=== PATIENT | female | born 2000 | race Hispanic/Latino ===

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

== ENCOUNTER 2020-04-07 20:02 | Inpatient (IN) | payer MEDICAID ==
[~2020-04-07] VITALS: Ht 165.1 cm; Wt 79.8 kg
[2020-04-07] MEDS ORDERED: LACTATED RINGERS 1000ML 1,000 ML IV PRN (20:03)
[2020-04-07] MEDS ORDERED: LACTATED RINGERS 500 ML 500 ML IV PRN (20:15)
[2020-04-07] MEDS ORDERED: PROMETHAZINE HCL 25 MG/ML 1ML AMPULE IM PRN (20:15)
[2020-04-07] MEDS ORDERED: ROPIVACAINE 0.2% 100ML VIAL 100 ML EP PRN (20:15)
[2020-04-07] MEDS ORDERED: EPHEDRINE SULFATE 50 MG/ML AMPULE IVP PRN (20:15)
[2020-04-07] MEDS ORDERED: NALOXONE HCL 0.4 MG/1 ML ML IV PRN (20:15)
[2020-04-07] MEDS ORDERED: MEPERIDINE-PF 50 MG/ML SYG IVP PRN (20:15)
[2020-04-07 21:53] LABS: HEMATOCRIT 29.1 % (36-48); MEAN CORPUSCULAR HEMOGLOBIN 25.5 pg (27.0-33.0); MEAN CORPUSCULAR HGB CONC 30.2 g/dL (32.0-36.0); MEAN CORPUSCULAR VOLUME 84.3 fL (80-100); NUCLEATED RED BLOOD CELLS 0.3 % (0.0-0.19); PLATELET COUNT (AUTO) 289 K/uL (130-400); RED BLOOD CELL COUNT(AUTO) 3.45 MIL/uL (4.00-5.50); RED CELL DISTRIBUTION WIDTH 17.6 % (11.0-15.5); WHITE BLOOD COUNT (AUTO) 17.5 K/uL (4.8-10.8)
[2020-04-07 22:03] LABS: APPEARANCE,URINE Cloudy (CLEAR); BILIRUBIN,URINE Negative (NEGATIVE); COLOR,URINE Yellow (YELLOW); GLUCOSE, URINE (UA) Negative (NEGATIVE); KETONES,URINE Negative (NEGATIVE); LEUKOCYTE ESTERASE ,URINE Large (NEGATIVE); NITRATE,URINE Negative (NEGATIVE); OCCULT BLOOD,URINE Large (NEGATIVE); PROTEIN,URINE Negative (NEGATIVE)
[2020-04-07 22:11] LABS: AMPHET/METH SCREEN,URINE NEGATIVE (NEGATIVE); BARBITURATE SCREEN, URINE NEGATIVE (NEGATIVE); BENZODIAZEPINES SCREEN,URINE NEGATIVE (NEGATIVE); CANNABINOID SCREEN,URINE POSITIVE (NEGATIVE); COCAINE SCREEN,URINE NEGATIVE (NEGATIVE); OPIATE SCREEN,URINE NEGATIVE (NEGATIVE); PHENCYCLIDINE SCREEN,URINE NEGATIVE (NEGATIVE)
[2020-04-07 22:17] LABS: BACTERIA,URINE Moderate /HPF (None Seen); MUCUS,URINE Few LPF (None Seen); SQUAMOUS EPITHELIAL CELL,UR 0-2 /HPF (0-2); WBC,URINE 26-50 /HPF (0-1)
[2020-04-07] MEDS ORDERED: CEFTRIAXONE SODIUM 1 GM ONE (23:59)
[2020-04-07] MEDS ORDERED: WATER FOR INJECTION,STERILE 5 ML VIAL ONE (23:59)
[2020-04-08] MEDS ORDERED: CEFTRIAXONE SODIUM 1 GM IVP SCH
[2020-04-08 02:47] VITALS: BP 105/55
[2020-04-08] MEDS ORDERED: OXYTOCIN 10 USP UNITS/ML 20 UNIT in LACTATED RINGERS 1000ML 1,000 ML IV SCH (05:00)
[2020-04-08] MEDS ORDERED: OXYTOCIN-LR 20 UNITS/1000 ML 1,000 ML IV ONE ×2 (05:02→12:16)
--- NOTE | 2020-04-08 09:22 | NUR ---
NO CPS open case Sw called local CPS office and pt has no open CPS case. New report to be made once baby is born
[2020-04-08] MEDS ORDERED: LIDOCAINE HCL 1% 20 ML VIAL ONE (11:13)
--- NOTE | 2020-04-08 11:53 | NUR ---
CPS REPORT # [id number] Sw notified that pt had delivered baby boy. Pt is positive for THC on delivery and baby will have UDS and Meconium testing done. Mariella made CPS report to Tamica kate [phone]. Waiting on CPS contact
[2020-04-08] MEDS ORDERED: ACETAMINOPHEN 325 MG TAB PO PRN (12:00)
[2020-04-08] MEDS ORDERED: BENZOCAINE/LANOLIN/ALOE VERA 60 ML AEROSOL TP PRN (12:00)
[2020-04-08] MEDS ORDERED: WITCH HAZEL 1 PAD TP PRN (12:00)
[2020-04-08] MEDS ORDERED: MEASLES/MUMPS/RUBELLA VACCINE, LIVE 0.5 ML/VIAL SQ PRN (12:00)
[2020-04-08] MEDS ORDERED: LANOLIN 30GM OINTMENT TP PRN (12:00)
[2020-04-08] MEDS ORDERED: DIPH,PERTUSS(ACELL),TET VAC/PF 0.5 ML VIAL IM PRN (12:00)
[2020-04-08] MEDS ORDERED: ACETAMINOPHEN-CODEINE 300/30MG TAB PO PRN (12:00)
[2020-04-08] MEDS: IBUPROFEN 600 MG TABLET PO PRN ×2 (12:23→19:03)
--- NOTE | 2020-04-08 13:40 | NUR ---
PATIENT ORIENTED TO ROOM. FUNDUS FIRM, BLEEDING SCANT. NO PAIN REPORTED AT THIS TIME. EDUCATED PATIENT ON SITZ BATH, TUCKS PADS, DERMAPLAST SPRAY. PT STATES SHE WISHES TO FORMULA FEED. ADVISED PATIENT TO CALL WHEN NEEDING TO AMBULATE FOR THE FIRST TIME.
[2020-04-08 13:41] VITALS: BP 109/49
--- NOTE | 2020-04-08 14:08 | NUR ---
CPS CPS amywtiffany Dias Jeffery,, Jr [phone] arrived to meet with pt and BF. CPS provided with pt information requested. CPS to notified when meeting done and dcp.
[2020-04-08 16:16] VITALS: BP 94/51
[2020-04-08 19:48] VITALS: BP 97/55
[2020-04-08] MEDS: DOCUSATE SODIUM 100 MG CAP PO SCH (21:00)
[2020-04-09 00:17] VITALS: BP 91/50
[2020-04-09 04:00] VITALS: BP 98/59
[2020-04-09] MEDS: IBUPROFEN 600 MG TABLET PO PRN (04:23)
[2020-04-09 06:52] LABS: HEMATOCRIT 28.3 % (36-48); MEAN CORPUSCULAR HEMOGLOBIN 25.1 pg (27.0-33.0); MEAN CORPUSCULAR HGB CONC 29.7 g/dL (32.0-36.0); MEAN CORPUSCULAR VOLUME 84.5 fL (80-100); NUCLEATED RED BLOOD CELLS 0.1 % (0.0-0.19); RED BLOOD CELL COUNT(AUTO) 3.35 MIL/uL (4.00-5.50); RED CELL DISTRIBUTION WIDTH 17.9 % (11.0-15.5); WHITE BLOOD COUNT (AUTO) 16.3 K/uL (4.8-10.8)
[2020-04-09 07:29] VITALS: BP 112/72
[2020-04-09 08:12] LABS: HEPATITIS Bs ANTIGEN SCREEN P Negative (Negative)
[2020-04-09] MEDS: DOCUSATE SODIUM 100 MG CAP PO SCH (09:00)
[2020-04-09 11:27] VITALS: BP 94/62
--- NOTE | 2020-04-09 11:50 | NUR ---
SPOKE WITH DR. COLLIER VIA TELEPHONE. UPDATE WAS GIVEN ON PATIENT'S STATUS. NEW ORDERS RECEIVED. PATIENT OKAY FOR DISCHARGE.
--- NOTE | 2020-04-09 13:25 | NUR ---
PATIENT LEFT UNIT VIA WHEELCHAIR WITH BELONGINGS IN HAND. PATIENT IS ACCOMPANIED BY GRANDMOTHER. PERSONAL VEHICLE USED FOR TRANSPORTATION. BABY SECURE IN [place].
== END 2020-04-09 13:25 | disposition home or self-care (01) | DRG 560 ==
LOC: LDH 20:02 → WSH 04-08 13:35
PROVIDERS: ADMIT Obstetrics & Gynecology; ATTEND Obstetrics & Gynecology
PROC: 3E033VJ Introduction of Other Hormone into Peripheral Vein, Percutaneous Approach (ICD-10-PCS; principal; 2020-04-08)
PROC: 10E0XZZ Delivery of Products of Conception, External Approach (ICD-10-PCS; 2020-04-08)
PROC: 0UQMXZZ Repair Vulva, External Approach (ICD-10-PCS; 2020-04-08)
PROC: 0KQM0ZZ Repair Perineum Muscle, Open Approach (ICD-10-PCS; 2020-04-08)
PROC: 3E0234Z Introduction of Serum, Toxoid and Vaccine into Muscle, Percutaneous Approach (ICD-10-PCS; 2020-04-08)
PROC: 3E0134Z Introduction of Serum, Toxoid and Vaccine into Subcutaneous Tissue, Percutaneous Approach (ICD-10-PCS; 2020-04-08)
PROC: 3E0R3BZ Introduction of Anesthetic Agent into Spinal Canal, Percutaneous Approach (ICD-10-PCS; 2020-04-08)
PROC: 00HU33Z Insertion of Infusion Device into Spinal Canal, Percutaneous Approach (ICD-10-PCS; 2020-04-08)
DX: O69.81X0 Labor and delivery complicated by cord around neck, without compression, not applicable or unspecified (principal); Z37.0 Single live birth; J45.909 Unspecified asthma, uncomplicated; O70.1 Second degree perineal laceration during delivery; O71.82 Other specified trauma to perineum and vulva; Z3A.39 39 weeks gestation of pregnancy; Z23 Encounter for immunization; O99.52 Diseases of the respiratory system complicating childbirth
CPT/HCPCS: 36415; 80305; 81001; 85027; 86592; 86850; 86900; 86901; 87088; 87340; A4314; G0378; J0696; J2590; J2795; J7120

== ENCOUNTER 2020-08-22 03:33 | Emergency (ER) | payer MEDICAID ==
[2020-08-22 05:01] LABS: APPEARANCE,URINE Turbid (CLEAR); BILIRUBIN,URINE Small (NEGATIVE); COLOR,URINE Dark Yellow (YELLOW); GLUCOSE, URINE (UA) Negative (NEGATIVE); KETONES,URINE Trace mg/dL (NEGATIVE); LEUKOCYTE ESTERASE ,URINE Trace (NEGATIVE); NITRATE,URINE Negative (NEGATIVE); OCCULT BLOOD,URINE Negative (NEGATIVE); PROTEIN,URINE Trace mg/dL (NEGATIVE)
[2020-08-22 05:04] LABS: HCG,QUAL RESULT NEGATIVE (NEGATIVE)
[2020-08-22 05:09] LABS: AMPHET/METH SCREEN,URINE NEGATIVE (NEGATIVE); BARBITURATE SCREEN, URINE NEGATIVE (NEGATIVE); BENZODIAZEPINES SCREEN,URINE POSITIVE (NEGATIVE); CANNABINOID SCREEN,URINE POSITIVE (NEGATIVE); COCAINE SCREEN,URINE POSITIVE (NEGATIVE); OPIATE SCREEN,URINE NEGATIVE (NEGATIVE); PHENCYCLIDINE SCREEN,URINE NEGATIVE (NEGATIVE)
[2020-08-22 06:02] LABS: AMORPHOUS SEDIMENT,UR Many /LPF (None Seen); BACTERIA,URINE Few /HPF (None Seen); RBC,URINE 0-1 /HPF (0-1); WBC,URINE 0-1 /HPF (0-1)
== END 2020-08-22 06:11 ==
LOC: EDH 03:33
DX: F19.10 Other psychoactive substance abuse, uncomplicated (principal); J45.909 Unspecified asthma, uncomplicated; F32.9 Major depressive disorder, single episode, unspecified
CPT/HCPCS: 80305; 81001; 81025

== ENCOUNTER 2025-03-20 10:04 | Emergency (ER) | payer BC, MEDICAID ==
[~2025-03-20] VITALS: Ht 165.1 cm; Wt 52.2 kg
--- NOTE | 2025-03-20 10:17 | ERN ---
ED Note History of Present Illness Stated Complaint: APPENDIX PAIN Chief Complaint: Abdominal Pain Time Seen by MD: 10:06 Dictation: PATIENT IS A 24-YEAR-OLD FEMALE COMING IN TODAY WITH COMPLAINTS OF HAVING APPENDICITIS FOR THE LAST 3-4 MONTHS. SHE STATES SHE HAS ALREADY BEEN TO [facility] ONCE AND HAD A CAT SCAN DONE LAST MONTH AND WAS TOLD HER APPENDIX WAS INFLAMED BUT THEY WOULD GIVE HER SOME ANTIBIOTICS RIGHT NOW AND THEN SHE COULD COME BACK LATER IF SHE WANTED SURGERY. SHE STATES SHE HAS HAD NO FEVER NO CHILLS NO NAUSEA VOMITING. SHE STATES SHE DID NOT GO TO HER PRIMARY CARE DOCTOR FOR REFERRAL BECAUSE WHY DID NOT [facility] REMOVE HER APPENDIX WHEN SHE WAS THERE. Allergies: Coded Allergies: No Known Drug Allergies (Unverified Allergy, Unknown, 04/07/20) Home Meds Active Scripts Ibuprofen (Ibuprofen) 600 Mg Tablet, 600 MG PO Q6H PRN for PAIN, #30 TAB Prov:BRIONNA DEVINE FURNITURE SANDER 03/20/25 Amoxicillin/Potassium Clav (Amox Tr-K Clv 875-125 mg Tab) 875 Mg-125 Mg Tablet, 1 EACH PO BID for 7 Days, #14 TAB 0 Refills Prov:BRIONNA DEVINE FURNITURE SANDER 03/20/25 Past Medical History Past Medical History: Anxiety, Asthma Surgical History: Other Surgical History Other: ECTOPIC LMP: Mar 15, 2025 : 4 Para: 1 Aborts: 3 RN Note Reviewed/Agreed w/PFSH: Yes Review of System Dictation CONSTITUTIONAL: NEGATIVE EXCEPT FOR HPI HEAD/FACE: NEGATIVE EXCEPT FOR HPI EENT: NEGATIVE EXCEPT FOR HPI RESPIRATORY: NEGATIVE EXCEPT FOR HPI GASTROINTESTINAL/ABDOMINAL: NEGATIVE EXCEPT FOR HPI CHRONIC RIGHT LOWER QUADRANT PAIN GENITOURINARY: NEGATIVE EXCEPT FOR HPI MUSCULOSKELETAL: NEGATIVE EXCEPT FOR HPI INTEGUMENTARY: NEGATIVE EXCEPT FOR HPI NEUROLOGICAL/PSYCH: NEGATIVE EXCEPT FOR HPI HEMATOLOGIC/LYMPHATIC: NEGATIVE EXCEPT FOR HPI ALL SYSTEMS NEGATIVE, EXCEPT NOTED ABOVE. 13 POINT REVIEW OF SYSTEMS ASSESSED AND ALL NEGATIVE EXCEPT FOR ABOVE. Initial Vital Sign VS Vital Signs Date Time Temp Pulse Resp B/P (MAP) Pulse Ox O2 Delivery O2 Flow Rate FiO2 03/20/25 10:08 97.0 94 20 126/77 99 Room Air 0 03/20/25 10:30 21 Physical Exam Dictation SHE THOMAS VITAL SIGNS REVIEWED GENERAL APPEARANCE: ALERT, ORIENTED X 3, NO ACUTE DISTRESS, WELL DEVELOPED, NOURISHED. HEAD AND FACE: NON-TRAUMATIC. EYES: PERRL, PINK CONJUNCTIVAS, EYELID NO TRAUMA, ANTERIOR CHAMBER WITH ARCUS SENILIS. EARS: PINNAS INTACT AND NO SIGNS OF TRAUMA OR ERYTHEMA EAR CANALS CLEAR AND NO DISCHARGE TM NO ERYTHEMA NOSE: NO DISCHARGE, NO BLEEDING. OROPHARYNX: MOUTH NORMAL, TONGUE PINK, PHARYNX CLEAR,NO ERYTHEMA, TONSILS NO EXUDATES, NO ABSCESSES NOTED, MUCOUS MEMBRANE MOIST NECK: SUPPLE, NON-TENDER, NO THYROMEGALY, NO MASSES, NO JVD, NO BRUITS BREAST:DEFERRED CHEST:NO TENDERNESS, NO CREPITUS, NO PARADOXICAL MOVEMENT, NO RETRACTIONS LUNGS:CLEAR, WELL-VENTILATED, SYMMETRIC, NO RALES, NO WHEEZING, NO RHONCHI, NO STRIDOR, GOOD BREATH SOUNDS BILATERALLY HEART: REGULAR RATE, REGULAR RHYTHM, NO MURMUR, NO GALLOPS VASCULAR: NO PERIPHERAL EDEMA, ABDOMEN: SOFT, POSITIVE BOWEL SOUNDS, NONDISTENDED, NO GUARDING, RIGHT LOWER QUADRANT PAIN TENDERNESS NO MASSES NO HEPATOMEGALY, NO SPLENOMEGALY, NO COLE'S SIGN, NO HERNIAS. RECTAL: DEFERRED GENITAL: DEFERRED NEUROLOGICAL: NORMAL SPEECH, MOTOR FUNCTION INTACT, SENSORY FUNCTION INTACT MUSCULOSKELETAL: NECK NONTENDER, FULL RANGE OF MOTION, BACK NONTENDER, FULL RANGE OF MOTION, EXTREMITIES: NONTENDER, FULL RANGE OF MOTION SKIN: COLOR PINK, DRY, NO TURGOR, NO RASH, NO LACERATIONS, NO ABRASIONS, NO CONTUSIONS. LYMPHATIC Results (Laboratory/Radiology) Laboratory/Radiology Laboratory Tests Test 03/20/25 10:29 03/20/25 10:35 White Blood Count 8.1 K/uL (4.8-10.8) Red Blood Count 4.11 MIL/uL (4.00-5.50) Hemoglobin 13.4 g/dL (12.0-16.0) Hematocrit 38.6 % (36-48) Mean Corpuscular Volume 93.9 fL (79-99) Mean Corpuscular Hemoglobin 32.6 pg (27.0-33.0) Mean Corpuscular Hemoglobin Concent 34.7 g/dL (32.0-36.0) Red Cell Distribution Width 12.3 % (11.0-15.5) Platelet Count 225 K/uL (130-400) Mean Platelet Volume 9.3 fL (7.5-10.5) Immature Granulocyte % (Auto) 0.2 % (0-1) Neutrophils (%) (Auto) 75.2 % (40.0-77.0) Lymphocytes (%) (Auto) 18.1 % (21.0-51.0) L Monocytes (%) (Auto) 5.7 % (3.0-13.0) Eosinophils (%) (Auto) 0.6 % (0.0-8.0) Basophils (%) (Auto) 0.2 % (0.0-5.0) Neutrophils # (Auto) 6.1 K/uL (1.8-7.7) Lymphocytes # (Auto) 1.5 K/uL (1.0-4.8) Monocytes # (Auto) 0.5 K/uL (0.1-1.0) Eosinophils # (Auto) 0.05 K/uL (0.00-0.70) Basophils # (Auto) 0.02 K/uL (0.00-0.20) Absolute Immature Granulocyte (auto 0.02 K/uL (0-1) Nucleated Red Blood Cells 0.0 % (0.0-0.19) Sodium Level 137 mmol/L (136-145) Potassium Level 3.1 mmol/L (3.5-5.1) L Chloride Level 99 mmol/L (101-111) L Carbon Dioxide Level 30 mmol/L (21-32) Blood Urea Nitrogen 6 mg/dL (7-18) L Creatinine 0.7 mg/dL (0.5-1.0) Glomerular Filtration Rate Calc 123 mL/min (>90) Random Glucose 88 mg/dL (70-105) Total Calcium 8.7 mg/dL (8.5-10.1) Lipase 27 U/L (16-77) Urine Color YELLOW (YELLOW) Urine Appearance CLOUDY (CLEAR) H Urine pH 6.0 (5.0-8.0) Urine Specific [place] 1.026 (1.001-1.031) Urine Protein 50 mg/dL (NEGATIVE) H Urine Glucose (UA) NEGATIVE mg/dL (NEGATIVE) Urine Ketones 20 mg/dL (NEGATIVE) H Urine Occult Blood SMALL (NEGATIVE) H Urine Nitrate NEGATIVE (NEGATIVE) Urine Bilirubin NEGATIVE mg/dL (NEGATIVE) Urine Urobilinogen 2.0 mg/dL (0.2-1.0) H Urine Leukocyte Esterase 500 Yanet/uL (NEGATIVE) H Urine RBC 6-10 /HPF (0-1) H Urine WBC 26-50 /HPF (0-1) H Urine Squamous Epithelial Cells MANY /HPF (0-2) Urine Bacteria None /HPF (None Seen) Urine HCG, Qualitative NEGATIVE (NEGATIVE) No evidence of nephro or ureterolithiasis is found. No hydronephrosis or ureteral dilatation is seen. The lung bases are clear. The stomach is unremarkable. It shows no wall thickening. No gross ulceration is seen. It is not overly distended. There are no surrounding inflammatory changes. No wall lesions are identified to suggest cancer. The spleen is unremarkable. It is not enlarged. The pancreas shows normal anatomy. It is not fatty replaced. It shows no lesions. The pancreatic duct is not dilated. The gallbladder is unremarkable. It shows no cholelithiasis. The gallbladder wall is normal in thickness. There is no pericholecystic fluid. The is no acute or chronic inflammation noted. The adrenal glands are unremarkable. There is no enlargement. No lesions are noted. The liver is unremarkable. It shows no focal masses. The appendix is unremarkable. It shows no evidence of inflammation. No appendicolith is seen. The small bowel is unremarkable. There is no evidence of dilatation to suggest obstruction. No evidence of adynamic ileus is seen. There is no small bowel wall thickening to suggest enteritis. The colon is unremarkable. The urinary bladder is unremarkable. There is no wall thickening to suggest tumor or inflammation. There are no intraluminal calculi. There are no diverticula. There is no evidence of chronic bladder outlet obstruction. There is no evidence of urinary bladder distention to suggest urinary retention. The other pelvic structures are unremarkable. The bony and vascular structures are unremarkable for the patient's age. IMPRESSION: NEGATIVE CT SCAN OF THE ABDOMEN AND PELVIS WITH ORAL AND IV CONTRAST. Labs Reviewed?: Yes ED Course ED Course Orders Procedure Category Date Status Time Cbc With Differential LAB 03/20/25 Complete 10:12 ,Urine Test LAB 03/20/25 Complete 10:12 Urinalysis Profile LAB 03/20/25 Complete 10:12 0.9%Nacl 1000ml (Ns PHA 03/20/25 Complete 1000ml) 10:30 Morphine 2mg Syg PHA 03/20/25 Complete (Morphine 2mg Syg) 10:30 Ondansetron 4mg Inj PHA 03/20/25 Complete (Zofran 4mg Inj) 10:30 Lipase LAB 03/20/25 Complete 10:12 Basic Metabolic Panel LAB 03/20/25 Complete 10:12 Us Abd Limited/Abd US 03/20/25 Resulted Wall 10:17 Potassium Bicarb/Cit PHA 03/20/25 Complete Ac 25meq (K-Lyte Ta 11:00 Culture Urine PEGGY 03/20/25 Complete 11:00 Ct Abdomen/Pelvis CT 03/20/25 Resulted W/Contrast 11:04 Iohexol (Omnipaque) PHA 03/20/25 Complete 11:56 Current Medications Medications (Trade) Dose Ordered Sig/Judie Route PRN Reason Start Time Stop Time Status Last Admin Dose Admin Iohexol (Omnipaque) 75 ml STK-MED ONCE IV 03/20/25 11:56 03/20/25 11:56 DC Morphine Sulfate (morPHINE 2MG SYG) 2 mg ONCE ONCE IVP 03/20/25 10:30 03/20/25 10:31 DC 03/20/25 10:40 Ondansetron HCl (zoFRAN 4MG INJ) 4 mg ONCE ONCE IVP 03/20/25 10:30 03/20/25 10:31 DC 03/20/25 10:39 Potassium Bicarbonate (K-Lyte Tablet Eff 25 Meq Tablet.eff) 25 meq ONCE ONCE PO 03/20/25 11:00 03/20/25 11:01 DC 03/20/25 11:11 Sodium Chloride 1,000 ml @ 0 mls/hr ONCE ONCE IV 03/20/25 10:30 03/20/25 10:31 DC 03/20/25 10:40 Vital Signs Date Time Temp Pulse Resp B/P (MAP) Pulse Ox O2 Delivery O2 Flow Rate FiO2 03/20/25 12:43 98.2 80 14 118/65 99 Room Air* 0 21 03/20/25 11:00 16 96/67 99 Room Air* 0 21 03/20/25 10:30 98.2 71 16 108/64 97 Room Air* 0 21 03/20/25 10:08 97.0 94 20 126/77 99 Room Air 0 1230/LABS AND X-RAYS NEGATIVE PATIENT WILL BE TREATED FOR ACUTE CYSTITIS AND DISCHARGED HOME TO FOLLOW UP WITH HER PRIMARY CARE DOCTOR IN 1-2 DAYS. Medical Decision Making MDM MDM: DIFFERENTIAL DIAGNOSIS: ECTOPIC VERSUS/DIVERTICULITIS/APPENDICITIS/H ERNIA/URINARY TRACT INFECTION RATIONALE: TESTS CONSIDERED AND ORDERED SECONDARY TO SHARED DECISION MAKING INCLUDE: LABS/RADIOLOGY PREVIOUS OUTSIDE RECORDS REVIEWED: OLD ER VISITS. RISK OF COMPLICATION AND/OR MORBIDITY OR MORTALITY OF PATIENT MANAGEMENT: NONE MEDICATIONS-PER MEDICATION RECONCILIATION NEED FOR HOSPITALIZATION: PATIENT DOES NOT MEET CRITERIA FOR HOSPITALIZATION. NO NEED FOR EMERGENCY MAJOR/MINOR SURGERY: NO THERE ARE NO SOCIAL CONCERNS WITH THIS PATIENT. PRESCRIPTION DRUG MANAGEMENT AUGMENTIN PRESCRIPTIONS WILL INCLUDE SYMPTOMATIC CARE PATIENT'S PRIOR EXTERNAL MEDICAL RECORDS FROM OTHER ER VISITS WERE REVIEWED BY ME INDICATED. PRIOR TESTING AND RESULTS FROM PREVIOUS VISITS WERE REVIEWED. PRIOR TESTS WERE TAKEN INTO ACCOUNT WITH MEDICAL DECISION MAKING AND RESOURCE UTILIZATION, INDEPENDENT HISTORIAN/HISTORIANS WERE USED TO OBTAIN COMPLETE MEDICAL HISTORY. I INDEPENDENTLY INTERPRETED THE TEST THAT WERE PERFORMED, RESULTS WERE REVIEWED BY ME AND CONSIDERED FINDINGS ON RADIOLOGY IF ORDERED. MEDICAL MANAGEMENT AND EXAMINATION INTERPRETATION DISCUSSIONS WERE HAD BY ME WITH OTHER QUALIFIED HEALTHCARE PROFESSIONALS INDICATED FOR THE PATIENT'S CARE. DX & DISP Disposition: Discharge Departure Impression: Primary Impression: Acute cystitis with hematuria Condition: Stable Scripts Ibuprofen (Ibuprofen) 600 Mg Tablet 600 MG PO Q6H PRN for PAIN, #30 TAB Prov: BRIONNA DEVINE FURNITURE SANDER 03/20/25 Amoxicillin/Potassium Clav (Amox Tr-K Clv 875-125 mg Tab) 875 Mg-125 Mg Tablet 1 EACH PO BID for 7 Days, #14 TAB 0 Refills Prov: BRIONNA DEVINE FURNITURE SANDER 03/20/25 Additional Instructions: FOLLOW-UP WITH PRIMARY CARE PROVIDER IN 1 TO 2 DAYS. TAKE MEDICATIONS DIRECTED HERE IN THE EMERGENCY ROOM. OKAY TO CONTINUE HOME MEDICATIONS UNLESS OTHERWISE DISCUSSED DURING YOUR VISIT IN THE EMERGENCY ROOM TODAY. RETURN TO YOUR NEAREST EMERGENCY ROOM IF SYMPTOMS WORSEN OR IF THERE IS NO IMPROVEMENT. CALL 911 IF YOU NEED IMMEDIATE ASSISTANCE. TAKE TYLENOL OR MOTRIN OVER-THE- COUNTER NEEDED AND IF NO CONTRAINDICATIONS ARE PRESENT. INCREASE ORAL HYDRATION. A WOUND CULTURE OR URINE CULTURE WAS ORDERED HERE IN THE EMERGENCY ROOM DEPARTMENT PLEASE FOLLOW-UP WITH PRIMARY CARE PROVIDER AND ADVISE THEM TO GET REPEAT PORTS FROM OUR FACILITY. IF YOU HAD ANY JASON WRAP/SPLINTS THAT WERE APPLIED HERE, PLEASE DO NOT REMOVE THEM UNTIL YOU SEE YOUR PRIMARY CARE OR SPECIALTY. TAKE ANTIBIOTICS DIRECTED UNTIL GONE. TAKE IBUPROFEN NEEDED FOR PAIN. INCREASE YOUR WATER INTAKE AND SEE YOUR PRIMARY CARE DOCTOR FOR FOLLOW UP. Referrals: SELF,REFERRAL (PCP) Time of Disposition: 12:31 I have reviewed the case, and I agree with, Diagnosis and Plan BRIONNA DEVINE NP Mar 20, 2025 10:17 ELYSE COSME DO Mar 21, 2025 08:01
[2025-03-20 10:39] LABS: BASOPHILS # (AUTO) 0.02 K/uL (0.00-0.20); BASOPHILS % (AUTO) 0.2 % (0.0-5.0); EOSINOPHILS # (AUTO) 0.05 K/uL (0.00-0.70); EOSINOPHILS % (AUTO) 0.6 % (0.0-8.0); HEMATOCRIT 38.6 % (36-48); IMMATURE GRANULOCYTE ABSOLUTE 0.02 K/uL (0-1); LYMPHOCYTES # (AUTO) 1.5 K/uL (1.0-4.8); LYMPHOCYTES % (AUTO) 18.1 % (21.0-51.0); MEAN CORPUSCULAR HEMOGLOBIN 32.6 pg (27.0-33.0); MEAN CORPUSCULAR HGB CONC 34.7 g/dL (32.0-36.0); MEAN CORPUSCULAR VOLUME 93.9 fL (79-99); MONOCYTES # (AUTO) 0.5 K/uL (0.1-1.0); MONOCYTES % (AUTO) 5.7 % (3.0-13.0); NEUTROPHILS # (AUTO) 6.1 K/uL (1.8-7.7); NEUTROPHILS % (AUTO) 75.2 % (40.0-77.0); PLATELET COUNT (AUTO) 225 K/uL (130-400); RED BLOOD CELL COUNT(AUTO) 4.11 MIL/uL (4.00-5.50); RED CELL DISTRIBUTION WIDTH 12.3 % (11.0-15.5); WHITE BLOOD COUNT (AUTO) 8.1 K/uL (4.8-10.8)
[2025-03-20] MEDS: ondanSETRON 4MG INJ IVP ONE (10:39)
[2025-03-20] MEDS: 0.9%NACL 1000ML 1,000 ML IV ONE (10:40)
[2025-03-20] MEDS: morPHINE 2 MG SYG IVP ONE (10:40)
[2025-03-20 10:47] LABS: CREATININE 0.7 mg/dL (0.5-1.0); POTASSIUM 3.1 mmol/L (3.5-5.1)
[2025-03-20 10:57] LABS: APPEARANCE,URINE CLOUDY (CLEAR); BILIRUBIN,URINE NEGATIVE (NEGATIVE); COLOR,URINE YELLOW (YELLOW); GLUCOSE, URINE (UA) NEGATIVE (NEGATIVE); KETONES,URINE 20 mg/dL (NEGATIVE); LEUKOCYTE ESTERASE ,URINE 500 Leu/uL (NEGATIVE); NITRATE,URINE NEGATIVE (NEGATIVE); OCCULT BLOOD,URINE SMALL (NEGATIVE); PROTEIN,URINE 50 mg/dL (NEGATIVE)
[2025-03-20 11:00] LABS: ADD UA MICROSCOPIC YES; HCG,QUALITATIVE URINE NEGATIVE (NEGATIVE)
[2025-03-20 11:02] LABS: MUCUS,URINE FEW LPF (None Seen); SQUAMOUS EPITHELIAL CELL,UR MANY /HPF (0-2); WBC,URINE 26-50 /HPF (0-1)
[2025-03-20] MEDS: PoTASSium BIcarbonate/CIT AC 25 MEQ TABLET.EFF PO ONE (11:11)
--- NOTE | 2025-03-20 11:17 | HMCIMG ---
Ultrasound right lower quadrant History: Rule out appendicitis COMPARISON: None FINDINGS: The appendix itself is not visualized. IMPRESSION: Appendix is not visualized. Therefore, this study cannot completely exclude appendicitis.
[2025-03-20] MEDS ORDERED: IOHEXOL-350 75 ML VIAL IV ONE (11:56)
--- NOTE | 2025-03-20 12:23 | HMCIMG ---
Exam Type: CT ABDOMEN/PELVIS W/CONTRAST Clinical Information: RIGHT LOWER QUADRANT PAIN/CHRONIC Comparison: None Contrast: 100 cc's Isovue 370 IV, no complications or adverse reactions CT Dose Index (CTDI): 31.60 mGy Dose Length Product (DLP): 1740.80 total mGy-cm Findings: No evidence of nephro or ureterolithiasis is found. No hydronephrosis or ureteral dilatation is seen. The lung bases are clear. The stomach is unremarkable. It shows no wall thickening. No gross ulceration is seen. It is not overly distended. There are no surrounding inflammatory changes. No wall lesions are identified to suggest cancer. The spleen is unremarkable. It is not enlarged. The pancreas shows normal anatomy. It is not fatty replaced. It shows no lesions. The pancreatic duct is not dilated. The gallbladder is unremarkable. It shows no cholelithiasis. The gallbladder wall is normal in thickness. There is no pericholecystic fluid. The is no acute or chronic inflammation noted. The adrenal glands are unremarkable. There is no enlargement. No lesions are noted. The liver is unremarkable. It shows no focal masses. The appendix is unremarkable. It shows no evidence of inflammation. No appendicolith is seen. The small bowel is unremarkable. There is no evidence of dilatation to suggest obstruction. No evidence of adynamic ileus is seen. There is no small bowel wall thickening to suggest enteritis. The colon is unremarkable. The urinary bladder is unremarkable. There is no wall thickening to suggest tumor or inflammation. There are no intraluminal calculi. There are no diverticula. There is no evidence of chronic bladder outlet obstruction. There is no evidence of urinary bladder distention to suggest urinary retention. The other pelvic structures are unremarkable. The bony and vascular structures are unremarkable for the patient's age. IMPRESSION: NEGATIVE CT SCAN OF THE ABDOMEN AND PELVIS WITH ORAL AND IV CONTRAST. This study was performed using dose reduction techniques to include automated exposure control and/or adjustment of the mA and/or kV according to patient size.
[2025-03-20] MEDS ORDERED: AMOX1TAB16 PO (12:32)
[2025-03-20] MEDS ORDERED: IBUP-2070 PO (12:32)
[2025-03-20 12:43] VITALS: BP 118/65; PULSE 80; RESP 14; TEMP 98.2; O2SAT 99
== END 2025-03-20 12:50 | disposition home or self-care (01) ==
LOC: EDH 10:04
DX: N30.01 Acute cystitis with hematuria (principal); J45.909 Unspecified asthma, uncomplicated; F41.9 Anxiety disorder, unspecified; Z79.899 Other long term (current) drug therapy
CPT/HCPCS: 99285; 74177; 96374; 76705; 96361; 96375; 80048; 83690; 85025; 87086; 81001; 81025; 36415; J2270; J7030; J2405; Q9967